=== PATIENT | male | born 1990 | race Caucasian/White ===

== ENCOUNTER 2020-03-23 13:58 | Inpatient (IN) | payer OTHER, SELFPAY ==
[2020-03-23] VITALS (11 sets, daily range): BP systolic 100–133; BP diastolic 59–78; PULSE 61–78; RESP 14–18; TEMP 36.6–37; O2SAT 97–100
[2020-03-23 14:51] LABS: Abs Immature Grans 0.03 k/cumm (0.0-0.09); Absolute Basophil Count 0.01 k/cumm (0.0-0.2); Absolute Lymphocyte Count 2.07 k/cumm (1.2-3.4); Basophils % 0.1; Eosinophils % 0.9; HCT 43.2 % (40.0-50.0); HGB 15.2 g/dL (13.5-17.5); Immature Grans % 0.2 %; Lymphocytes % 15.1; Mean Corp. HGB Concentration 35.2 g/dL (32.0-36.0); Mean Corpuscular Hemoglobin 31.3 pg (27.0-33.0); Mean Corpuscular Volume 88.9 fL (80-95); Mean Platelet Volume 11.5 fL (8.0-11.0); Neutrophils % 75.7; Platelet Count 186 x1000/uL (130-400); RBC 4.86 m/cumm (4.50-6.00); RBC Distribution Width 12.3 % (11.8-14.1); White Blood Cell Count 13.69 k/cumm (4.4-10.8)
[2020-03-23 14:51] LABS: Bilirubin Negative (Negative); Blood Negative (Negative); Clarity Clear (Clear); Glucose Negative (Negative); Ketones 15 mg/dL (Negative); Leukocyte Esterase Negative (Negative); Nitrite Negative (Negative); Specific Gravity 1.025 (1.005-1.025); Urobilinogen 0.2 EU/dL (Up TO 0.2); pH 6.5 (5-8)
[2020-03-23 14:53] LABS: Absolute Eosinophil Count 0.12 k/cumm (0.0-0.7); Absolute Neutrophil Count 10.36 k/cumm (1.2-6.7)
--- NOTE | 2020-03-23 15:00 | DI.CT_ITS ---
EXAM: CT ABDOMEN PELVIS W CLINICAL HISTORY: Right lower quadrant pain, elevated white count TECHNIQUE: Imaging Protocol: Axial computed tomography images with coronal and sagittal reformatted images were created and reviewed CONTRAST MATERIAL: Intravenous: Omnipaque 350 Contrast volume:100 mL Oral: yes / no COMPARISON: No exams were available for comparison FINDINGS: ABDOMEN: Lung Bases: Normal where visualized. Liver: Normal density. No measurable mass. Portal, Superior Mesenteric, and Splenic Veins: Unremarkable. Gallbladder and Biliary Tract: No radiodense calculus or dilation. Pancreas: Normal density, no abnormal calcifications or inflammatory process. Spleen: Normal. Adrenals: No masses seen. Kidneys: Normal size, contour and axis. No radiodense stones or obstructive uropathy. No masses seen. Abdominal Aorta: Abdominal portion non-dilated. Bowel: No obstruction or bowel wall thickening. The appendix is distended in the right lower quadrant measuring 1.9 cm in diameter. There is enhancement of the wall and periappendiceal inflammatory lashanda nges are present. There is some high density material seen with in loops of bowel and the appendix. This is felt to be ingested material.. No definite appendicoliths is present. Peritoneal Cavity: Small amount of free fluid in the pelvis. No abscess is present Lymph Nodes: Within normal limits. Bones: Unremarkable. Soft Tissues: Unremarkable. PELVIS: Bladder: Symmetric distention, no gross wall thickening. Reproductive Organs: Unremarkable as visualized. Lymph Nodes: Within normal limits. Bones: Within normal limits. IMPRESSION: Findings consistent with an acute appendicitis. No evidence of abscess or free air. Small amount of free fluid in the pelvis. The findings were discussed with the emergency department on the date of the examination. RADIATION DOSE DELIVERED: Total DLP DATA REPOSITORY: All CT scans at this facility are submitted to the National Radiology Data Registry (NRDR) Dose Index Registry (DIR) with the [employer] (ACR). RADIATION OPTIMIZATION: All CT scans at this facility use at least one of these dose optimization te chniques: automated exposure control; mA and/or kV adjustment per patient size (includes targeted exa ms where dose is matched to clinical indication); or iterative reconstruction.
[2020-03-23 15:03] LABS: ALT 39 U/L (16-63); AST 39 U/L (15-37); Albumin 4.3 g/dL (3.4-5.0); Alkaline Phosphatase 94 U/L (46-116); Anion Gap 7.8 mmol/L (3-11); BUN 19 mg/dL (7-18); Bilirubin, Total 1.7 mg/dL (0.2-1.0); CO2 28.2 mmol/L (21.0-32.0); CREATININE 1.25 mg/dL (0.70-1.30); Calcium 9.3 mg/dL (8.5-10.1); Chloride 98 mmol/L (98-107); Glucose 100 mg/dL (74-106); Lipase 64 U/L (73-393); Potassium 4.1 mmol/L (3.5-5.1); Sodium 134 mmol/L (136-145); Total Protein 8.2 g/dL (6.4-8.2)
--- NOTE | 2020-03-23 15:23 | W.ED.GENAD ---
Discharge Plan Disposition Patient Disposition: [facility] INPATIENT Condition: Stable Discharge Details Chief Complaint: Abd Prob Clinical Impression: Acute appendicitis Admit Date/Time: 03/23/20 20:39 Admit Provider: Anat Walton Attending Provider: Anat Walton Primary Care Provider: None,None ED Provider: Johanny Pagan Discharge Data Discharge Date/Time-TO BE ENTERED AT DEPARTURE: 03/23/20 18:03 Medical Decision Making <MITZI Silva - Last Filed: 03/23/20 15:33> 29-year-old gentleman presenting with progressive right lower quadrant discomfort. No other associated symptoms such as fever, nausea, back pain, dysuria, hematuria, diarrhea, constipation, testicular pain, groin discomfort. Denies trauma, travel, sick exposure, bad food exposure. Certainly the most likely diagnosis here is appendicitis however certainly could be atypical pyelonephritis, gastroenteritis, colitis, biliary colic, etc. Will obtain routine laboratory values and reassess Laboratory values reveal a white count of 13.69 hemoglobin 15.2 hematocrit 43.2 platelet count 186. Absolute neutrophils 10.36. Sodium 134, BUN 19, total bili 1.7, AST 39. Urinalysis reveals [address] abdomen and pelvis. He does have a slightly elevated bilirubin however is examination is far less consistent with biliary colic or acute cholecystitis Medical Records Medical records reviewed: Yes I reviewed the patient's medical records. Lab Data Lab results reviewed: Yes I reviewed the patient's lab results. Lab results narrative: Laboratory Tests Range/Units 03/23/20 03/23/20 03/23/20 14:20 14:20 14:45 WBC (4.4-10.8) k/cumm 13.69 H RBC (4.50-6.00) m/cumm 4.86 Hgb (13.5-17.5) g/dL 15.2 Hct (40.0-50.0) % 43.2 MCV (80-95) fL 88.9 MCH (27.0-33.0) pg 31.3 MCHC (32.0-36.0) g/dL 35.2 RDW (11.8-14.1) % 12.3 Plt Count (130-400) x1000/uL 186 MPV (8.0-11.0) fL 11.5 H Immature Gran % % 0.2 Neutrophils % 75.7 Lymphocytes % 15.1 Monocytes % 8.0 Eosinophils % 0.9 Basophils % 0.1 Absolute Neutrophils (1.2-6.7) k/cumm 10.36 H Absolute Lymphocytes (1.2-3.4) k/cumm 2.07 Absolute Monocytes (0.11-0.7) k/cumm 1.10 H Absolute Eosinophils (0.0-0.7) k/cumm 0.12 Absolute Basophils (0.0-0.2) k/cumm 0.01 Sodium (136-145) mmol/L 134 L Potassium (3.5-5.1) mmol/L 4.1 Chloride (98-107) mmol/L 98 Carbon Dioxide (21.0-32.0) mmol/L 28.2 Anion Gap (3-11) mmol/L 7.8 BUN (7-18) mg/dL 19 H Creatinine (0.70-1.30) mg/dL 1.25 Estimated GFR/1.73 m2 (mL/min/1.73m2) >= 60.00 Glucose (74-106) mg/dL 100 Calcium (8.5-10.1) mg/dL 9.3 Total Bilirubin (0.2-1.0) mg/dL 1.7 H AST (15-37) U/L 39 H ALT (16-63) U/L 39 Alkaline Phosphatase (46-116) U/L 94 Total Protein (6.4-8.2) g/dL 8.2 Albumin (3.4-5.0) g/dL 4.3 Lipase (73-393) U/L 64 Urine Color (Yellow) Yellow Urine Clarity (Clear) Clear Urine pH (5-8) 6.5 Ur Specific [place] (1.005-1.025) 1.025 Urine Protein (Negative) mg/dL Negative Urine Ketones (Negative) mg/dL 15 H Urine Blood (Negative) Negative Urine Nitrite (Negative) Negative Urine Bilirubin (Negative) Negative Urine Urobilinogen (Up TO 0.2) EU/dL 0.2 Ur Leukocyte Esterase (Negative) Negative Urine Glucose (Negative) mg/dL Negative <MITZI Hamilton - Last Filed: 03/23/20 22:21> Care transitioned to myself from Roney Rodríguez PA-C. Imaging had confirmed his suspicion for appendicitis, Roney discussed these results with the patient and had surgeon called. Patient requesting his daily dose of Suboxone. Typically receives 16mg film, will give two 8mg films for his typical dosing. Will give IV hydration, will discuss with surgeon regarding antibiotic selection. Consulted with Dr. Walton. She advised Zosyn for abx regimen prior to surgical intervention. Dr. Walton in the department taking patient to the OR for appendectomy. HPI <MITZI Silva - Last Filed: 03/23/20 15:33> General Mode of arrival: ambulatory. Date/Time Provider Initiated Documentation: 03/23/20 14:00. Limitations to Documentation: no limitations. Information obtained by: patient. HPI Narrative: 29-year-old gentleman who currently takes Suboxone, presents to the ER for right lower abdominal discomfort progressively worsening over the past week. He denies bad food exposure, sick contact, fever, back pain, nausea, vomiting, diarrhea, constipation, dysuria or hematuria. Denies any pain radiating to his testicles or penis. He reports that now just going over bumps in the car causes his pain to increase. It is mild-moderate at baseline. Pain is constant and crampy Related Data Home Medications Medication Instructions Recorded Confirmed ibuprofen 800 mg tablet 800 mg PO TID PRN #42 tab 06/04/19 03/23/20 buprenorphine-naloxone [Suboxone] 1 film BUCCAL Q24H 03/23/20 03/23/20 Previous Rx's Medication Instructions Recorded ibuprofen 800 mg tablet 800 mg PO TID PRN #42 tab 06/04/19 Allergies Allergy/AdvReac Type Severity Reaction Status Date / Time No Known Allergies Allergy Verified 06/03/19 15:27 General Stated Complaint: Abd Prob TONO: 3 Review of Systems <MITZI Silva - Last Filed: 03/23/20 15:33> Constitutional Constitutional: Denies fatigue, Denies fever(s) and Denies headache(s) ENT Ears, Nose, Mouth, and Throat: Denies headache(s) Cardiovascular Cardiovascular: Denies chest pain Respiratory Respiratory: Denies cough and Denies pain with cough Gastrointestinal Gastrointestinal: Reports abdominal pain, Denies diarrhea, Denies nausea and Denies vomiting Genitourinary Genitourinary: Denies dysuria and Denies testicular pain Musculoskeletal Musculoskeletal: Denies back pain Integumentary/Breasts Skin/Breast: Denies rash Neurologic Neurologic: Denies headache(s) Endocrine Endocrine: Denies fatigue PFSH <MITZI Silva - Last Filed: 03/23/20 15:33> Medical History (Updated 03/23/20 @ 22:21 by MITZI Hamilton) Acute appendicitis (Acute) Tetrahydrocannabinol (THC) use disorder, moderate, dependence (Acute) Social History Smoking/Tobacco Use Status: Never Alcohol Intake: never Details: doesn't drink Drug use: Current Sobriety Substance use type: marijuana Details: attends [employer] Seatbelt use: always Do you feel safe at home: Yes Do you feel safe in your relationship?: Yes Exam <MITZI Silva - Last Filed: 03/23/20 15:33> Const General: cooperative, healthy appearing, comfortable and no acute distress Orientation: alert, awake and oriented x3 HENMT Head: normal to inspection, normocephalic and atraumatic Mouth: moist mucous membranes Eyes Conjunctivae: conjunctivae normal Neck Neck: normal visual inspection, full ROM, trachea midline and supple Chest Chest: normal inspection of the chest Resp Effort & Inspection: normal respiratory effort and able to speak in complete sentences Auscultation: clear to auscultation bilaterally Cardio Rate: regular rate Rhythm: regular rhythm GI Inspection: normal to inspection Palpation: soft, not firm, no guarding, not rigid and tender at McBurney's point and with rebound tenderness Auscultation: normal bowel sounds Scrotum: scrotum normal Testes: normal and no testicular tenderness Back/Spine/Pelvis Back: no CVA tenderness and No back tenderness Skin General skin exam: no rashes or lesions noted Neuro General: patient alert, patient awake, patient oriented x3, moves all extremities and no focal motor deficits Motor: muscle tone normal throughout and strength 5/5 throughout Sensory Exam: no sensory deficits noted Psych Appearance: grossly normal Mental Status: mental status grossly normal Course <MITZI Silva - Last Filed: 03/23/20 15:33> Vital Signs Vital signs: Vital Signs Temperature 36.8 C 03/23/20 14:02 Pulse 75 03/23/20 14:02 Blood Pressure 133/67 03/23/20 14:02 Pulse Oximetry 98 03/23/20 14:02 Temperature 36.8 C 03/23/20 14:02 Temperature Source Temporal Artery Scan 03/23/20 14:02 Pulse 75 03/23/20 14:02 Respiratory Effort Non-Labored 03/23/20 14:04 Blood Pressure 133/67 03/23/20 14:02 Blood Pressure Position Sitting 03/23/20 14:02 Pulse Oximetry 98 03/23/20 14:02 Oxygen Delivery Method Room Air 03/23/20 14:02 Oxygen Flow Rate 0 03/23/20 14:02 Pain Level 7 03/23/20 14:02 Lab/Test Results Lab/Test Results: Laboratory Tests Range/Units 03/23/20 03/23/20 03/23/20 14:20 14:20 14:45 WBC (4.4-10.8) k/cumm 13.69 H RBC (4.50-6.00) m/cumm 4.86 Hgb (13.5-17.5) g/dL 15.2 Hct (40.0-50.0) % 43.2 MCV (80-95) fL 88.9 MCH (27.0-33.0) pg 31.3 MCHC (32.0-36.0) g/dL 35.2 RDW (11.8-14.1) % 12.3 Plt Count (130-400) x1000/uL 186 MPV (8.0-11.0) fL 11.5 H Immature Gran % % 0.2 Neutrophils % 75.7 Lymphocytes % 15.1 Monocytes % 8.0 Eosinophils % 0.9 Basophils % 0.1 Absolute Neutrophils (1.2-6.7) k/cumm 10.36 H Absolute Lymphocytes (1.2-3.4) k/cumm 2.07 Absolute Monocytes (0.11-0.7) k/cumm 1.10 H Absolute Eosinophils (0.0-0.7) k/cumm 0.12 Absolute Basophils (0.0-0.2) k/cumm 0.01 Sodium (136-145) mmol/L 134 L Potassium (3.5-5.1) mmol/L 4.1 Chloride (98-107) mmol/L 98 Carbon Dioxide (21.0-32.0) mmol/L 28.2 Anion Gap (3-11) mmol/L 7.8 BUN (7-18) mg/dL 19 H Creatinine (0.70-1.30) mg/dL 1.25 Estimated GFR/1.73 m2 (mL/min/1.73m2) >= 60.00 Glucose (74-106) mg/dL 100 Calcium (8.5-10.1) mg/dL 9.3 Total Bilirubin (0.2-1.0) mg/dL 1.7 H AST (15-37) U/L 39 H ALT (16-63) U/L 39 Alkaline Phosphatase (46-116) U/L 94 Total Protein (6.4-8.2) g/dL 8.2 Albumin (3.4-5.0) g/dL 4.3 Lipase (73-393) U/L 64 Urine Color (Yellow) Yellow Urine Clarity (Clear) Clear Urine pH (5-8) 6.5 Ur Specific [place] (1.005-1.025) 1.025 Urine Protein (Negative) mg/dL Negative Urine Ketones (Negative) mg/dL 15 H Urine Blood (Negative) Negative Urine Nitrite (Negative) Negative Urine Bilirubin (Negative) Negative Urine Urobilinogen (Up TO 0.2) EU/dL 0.2 Ur Leukocyte Esterase (Negative) Negative Urine Glucose (Negative) mg/dL Negative Sign Out <MITZI Silva - Last Filed: 03/23/20 15:33> Sign Out Data: Sign Out Comment: At time of signout patient had just returned from CT, awaiting CT results and disposition Last updated by Roney Rodríguez PA at 03/23/20 15:48
[2020-03-23] MEDS: Normal Saline - Diluent 50 ML VIAL IV (15:45)
[2020-03-23] MEDS: Omnipaque 350 MG/ML 100 ML BTL IJ (15:45)
[2020-03-23] MEDS: Normal Saline 1,000 ML 1000 ML IV (16:30)
[2020-03-23] MEDS: Buprenorphine/Naloxone 8 mg/2 mg FILM 2 EACH SL (16:31)
[2020-03-23] MEDS: PIPERACILLIN/TAZO 3.375 GM in Normal Saline 50 ML IVPB ×2 (16:57→23:28)
[2020-03-23] MEDS: Lactated Ringers 1,000 ML 150 ML IV ×3 (17:21→22:12)
--- NOTE | 2020-03-23 17:46 | HPE_ITS ---
Date of service: 03/23/20 Time of Service: 17:46 Assessment and Plan Assessment and plan (1) Acute appendicitis: Status: Acute Assessment and plan: Informed consent is obtained for the procedural (explained in simple layman's terms that the pt and/or family could understand) explaining risks vs benefits and alternatives to the procedure and consequences if we do not do the procedure. Risks include but are not limited to:bleeding,infections, pneumonia, blood clots/DVT/PE, anesthesia(aspiration, damage to teeth/airway/DE/CVA//prolonged mechanical ventilation/PTX/IV infections), damage to bowel, bladder,blood vessels. Leakage from anastomosis requiring colostomy/ Wound infections requiring further surgery. Hernias. Scarring and disfigurement. Subsequent bowel obstructions from scar tissue. Possible open procedure if minimally invasive procedure is being attempted. -abscess and drain. -stump appendicitis. -if his appendicitis is ruptured, we may only place a drain today and keep him in the hosp on IV abx. Than he would require appendectomy at a later date. (2) Tetrahydrocannabinol (THC) use disorder, moderate, dependence: Status: Acute History of Present Illness Consults Consult date: 03/23/20 Narrative: pt seen and exsmined. Pt says he has been having pain for about a week. Today the pain b/c severe and was painful w/ just breathing so he came in to have it checked out. no n/v. no diarrhea. +hungry. no prior hx of GI problems. denies trauma. no one else at home is ill. He denies any exposure to covid that he is aware of. no fever/chills/muscle aches. pain only in RLQ/suprpubic area. started in RLQ and has only been in RLQ/suprapubic area. Review of Systems All systems reviewed & are unremarkable except as noted in HPI and below PFSH Social History Smoking/Tobacco Use Status: Never Alcohol Intake: never Details: doesn't drink Drug use: Current Sobriety Substance use type: marijuana Details: attends [employer] Seatbelt use: always Do you feel safe at home: Yes Do you feel safe in your relationship?: Yes Meds Home Medications and Allergies Home Medications Medication Instructions Recorded Confirmed Type ibuprofen 800 mg tablet 800 mg PO TID PRN #42 tab 06/04/19 03/23/20 Rx buprenorphine-naloxone [Suboxone] 1 film BUCCAL Q24H 03/23/20 03/23/20 History Allergies Allergy/AdvReac Type Severity Reaction Status Date / Time No Known Allergies Allergy Verified 06/03/19 15:27 Exam Const General: cooperative, healthy appearing, comfortable, no acute distress, well developed and well groomed Nutritional Appearance: average body habitus and well nourished Orientation: alert, awake and oriented x3 HENMT Head: normal to inspection, normocephalic and atraumatic Ears: hearing grossly normal bilaterally and external ears normal General nose exam: external nose normal Face and sinus: normal facial exam and sinuses nontender Mouth: oral mucosae normal, lip normal, tongue normal and moist mucous membranes Teeth and gingiva: dentition normal Eyes General: appearance normal, both eyes and all related structures Conjunctivae: conjunctivae normal Sclera: sclerae normal Pupils: PERRL Neck Neck: normal visual inspection and full ROM Chest Chest: normal inspection of the chest Resp Effort & Inspection: normal respiratory effort, able to speak in complete sentences, no cough, no nasal flaring, not tachypneic and no use of accessory muscles Auscultation: clear to auscultation bilaterally, no rales, no rhonchi and no wheezes Cardio Jugular venous pressure: no JVD Rate: regular rate Rhythm: regular rhythm GI Inspection: normal to inspection, no edema and non-distended Palpation: soft, no masses, tender (no hernias. ) in the RLQ, suprapubicly, with rebound tenderness and Rovsing's sign positive; obturator sign negative and No ascites Auscultation: absent bowel sounds Other: no diffuse peritonitis. Skin General skin exam: no rashes or lesions noted Trauma: no lacerations or abrasions Other: min BS. mult tattoos. skin intact. Neuro General: patient alert, patient oriented x3, oriented, gait normal, moves all extremities, no focal motor deficits and CN's II-XI intact bilaterally Cognition: normal cognition Speech: speech normal Gait: normal gait Motor: muscle tone normal throughout Extrem General: normal to inspection, full ROM and no clubbing, cyanosis or edema Psych Appearance: grossly normal and well kempt Mental Status: mental status grossly normal Speech and Movement: speech and movement normal Affect: normal affect Results Labs Result diagrams: 03/23/20 14:20 03/23/20 14:20 Labs: Laboratory Results - last 24 hr 03/23/20 03/23/20 03/23/20 14:20 14:20 14:45 WBC 13.69 H RBC 4.86 Hgb 15.2 Hct 43.2 MCV 88.9 MCH 31.3 MCHC 35.2 RDW 12.3 Plt Count 186 MPV 11.5 H Immature Gran % 0.2 Neutrophils % 75.7 Lymphocytes % 15.1 Monocytes % 8.0 Eosinophils % 0.9 Basophils % 0.1 Absolute Neutrophils 10.36 H Absolute Lymphocytes 2.07 Absolute Monocytes 1.10 H Absolute Eosinophils 0.12 Absolute Basophils 0.01 Sodium 134 L Potassium 4.1 Chloride 98 Carbon Dioxide 28.2 Anion Gap 7.8 BUN 19 H Creatinine 1.25 Estimated GFR/1.73 m2 >= 60.00 Glucose 100 Calcium 9.3 Total Bilirubin 1.7 H AST 39 H ALT 39 Alkaline Phosphatase 94 Total Protein 8.2 Albumin 4.3 Lipase 64 Urine Color Yellow Urine Clarity Clear Urine pH 6.5 Ur Specific [place] 1.025 Urine Protein Negative Urine Ketones 15 H Urine Blood Negative Urine Nitrite Negative Urine Bilirubin Negative Urine Urobilinogen 0.2 Ur Leukocyte Esterase Negative Urine Glucose Negative Last Vital Signs Temp 37 C 03/23/20 15:51 Pulse 78 03/23/20 15:51 Resp 18 03/23/20 15:51 BP 127/72 03/23/20 15:51 Pulse Ox 98 03/23/20 15:51 COVID-19 Screening Traveled to [place] from one of the affected countries or regions?: NO Recent travel in the [place] within the last 14 days?: No Recent out of the country travel within the last 14 days?: No Exposure or possible exposure to illness during travel?: No Had IN PERSON contact w/suspected or confirmed C-19 person: No Have you had the following symptoms in the past few days?: No Symptoms noted since travel?: No Symptoms
[2020-03-23] MEDS: Bupivacaine 0.5% Pres-Free 30 ML VIAL (18:49)
--- NOTE | 2020-03-23 19:55 | APP_PTH ---
PATIENT: KAL NAIR LOC: [id number] AGE/SX: 29/M ROOM: 208 RE03/23/[address]: Anat Walton : 1990 BED: A DIS: 03/25/2020 SPEC #: [id number] RECD: 03/24/20 09:16 STATUS: ADRI REQ #: [id number] GUS: 03/23/20 19:[address]: Anat Walton DEPT: Surgical Specimen RECD BY: Kirby Manzo Tissues: 1 - APPENDIX NOT INCIDENTAL Procedures: GROSS AND MICRO LEVEL 3 Comments: [id number]
--- NOTE | 2020-03-23 20:31 | W.PM.OP ---
Date of service: 03/23/20 Time of Service: 20:32 Operative Note Operative Note DATE OF PROCEDURE: 03/23/20 PRE-OP DIAGNOSIS: acute appendicitis POST-OP DIAGNOSIS: same necrotic/gangrenous PROCEDURE: denisse appy and drain SURGEON: Ngoc Hood BATHING SUIT MAKER: Juhi Turner ANESTHESIA: GETA ESTIMATED BLOOD LOSS: 20 PATHOLOGY: other COMPLICATIONS: None Patient was transported to: PACU Patient's condition: stable Procedure Description: COMPLICATIONS: The patient tolerated the procedure well without complications. INDICATIONS: The patient has signs and symptoms compatible with acute appendicitis and is brought to the OR for laparoscopic appendectomy, possible open procedure. Informed consent is obtained for the procedural (explained in simple layman's terms that the pt and/or family could understand) explaining risks vs benefits and alternatives to the procedure and consequences if we do not do the procedure. Risks include but are not limited to:bleeding,infections, pneumonia, blood clots/DVT/PE, anesthesia(aspiration, damage to teeth/airway/VT/CVA//prolonged mechanical ventilation/PTX/IV infections), damage to bowel, bladder,blood vessels, ureters. Damage to solid organs requiring removal. Infertility. Leakage from anastomosis requiring colostomy. Wound infections requirng further surgery. Scarring and disfigurement. Subsequent bowel obstructions from scar tissue. Possible open procedure if minimaly invsive procedure is being attempted. Abscess and stump appendicitis as well as others. DESCRIPTION OF PROCEDURE: The patient was brought to the operating room suite and placed in supine position. Anesthesia was administered per the Department of Anesthesia. A Ibrahim catheter and OG tube are placed. The patient was prepped and draped in the usual sterile fashion using ChloraPrep scrub solution. Pause for the cause was done. 30 mL of 1% buffered was used for local anesthetization. A stab incision was made in the umbilicus and the Veress was inserted. Drop test was positive and insufflation was begun. When 15 mm of pressure was noted on the monitor, the Veress was removed, a #5 port inserted. Camera inserted through the port shows no damage to underlying structures. Bowel, liver and stomach that are visualized are normal in appearance. The appendix is severe inflammed adn necrotic. there is no abcess or fluid in the pelvis. The omentum is curled up over the appendix. this is taken down with a combination of blunt and sharp dissection. The appendix is also extremely retroperitoneal. White line of Toldt is opened sharply in order to visualize the appendix. The PEG also is curled around itself and the appendix is bluntly dissected up itself so we able to visualize the base as it comes into the cecum. A 12 mm port was then placed in the suprapubic position under direct visualization following creation of a local field block as well as a second 5 mm port in the LLQ. The appendix is elevated and a rent dissected into the mesentery. once I am able to dissect out/identify The base of the appendix, it is healthy and will hold mayi. A Endo-SCAR stapler is placed across the base of the appendix and fired and 2nd stapler placed across the mesentery and fired. The appendix is placed in a bag and brought out. There is no bleeding or enteric leakage from the staple lines. There is no abscess apparent. How because of severity of infection I did place a drain through 1 of the #5 port. Is a sewn in with 2-0 nylon. The abdomen was copiously irrigated with a liter of saline. All saline is evacuated. The scope and ports are removed. Pneumoperitoneum is evacuated. The fascia under the 12 mm port is closed with 0 Vicryl. There was no bleeding from the port sites as when they removed and the pneumoperitoneum evacuated. The wounds were copiously irrigated and closed in 2 layers with 4-0 Monocryl. Skin glue is applied. The patient tolerated the procedure without complication, transferred to the recovery room in stable condition. Family was apprised of patient condition. The patient can be discharged home later today. NGOC HOOD, DO
[2020-03-23] MEDS: Acetaminophen 325 MG TAB 650 MG PO (22:12)
--- NOTE | 2020-03-23 22:36 | PGE_ITS ---
Date of Service Date of service: 03/23/20 Time of Service: 21:40 Subjective Subjective Interval history since last seen: pt seen in recovery. Very groggy still. The Patient's condition has been reviewed with the RN. Vitals have all been stable. Pain is controlled. The patient has been had a hummel in during the procedure. MED-subxone dose is incorrect in computer. will address in am Antibiotics:zosyn DVT prophylaxis:SCD/walk GI prophylaxis: diet Constipation prophlaxis: MOM PHYSICAL EXAM GENERAL APPEARANCE: still very sleepy, healthy appearance, oriented, in no acute distress SKIN: No rashes. HYDRATION: Well hydrated HEAD, EYES, EARS, NECK, AND THROAT: Head is normocephalic, pupils equal, round, reactive to light and accommodation, ocular movement intact, sclera clear and no jaundice or redness. Dentition intact. No eye pain. No thrush NECK: no sore throat. LUNGS: normal respiration, clear to auscultation Normal chest wall movement. No chest wall pain. HEART: Regular rate and rhythm. NSR and no ST or T waves changes. EXTREMITY: No edema or cyanosis ABDOMEN: dressings are clean dry and intact. appropriate pain at surgical site. + bowel sounds NEURO: no focal neuro deficits. The patient current medical condition and all orders reviewed with nursing. Patient is stable and doing well postOp and continue routine medical care. pt will be started on abx b/c of the severity of Dx. labs in am ambulate pulm toilet pain control pt is on subxone adn the dose in computer is wrong- will address in am See orders. NGOC HOOD D.O. Objective Objective Clinical Data: Abnormal lab results 03/23/20 03/23/20 03/23/20 Range/Units 14:20 14:20 14:45 WBC 13.69 H (4.4-10.8) k/cumm MPV 11.5 H (8.0-11.0) fL Absolute Neutrophils 10.36 H (1.2-6.7) k/cumm Absolute Monocytes 1.10 H (0.11-0.7) k/cumm Sodium 134 L (136-145) mmol/L BUN 19 H (7-18) mg/dL Total Bilirubin 1.7 H (0.2-1.0) mg/dL AST 39 H (15-37) U/L Urine Ketones 15 H (Negative) mg/dL Vital Signs Temperature 36.9 C 03/23/20 21:49 Temperature Source Temporal Artery Scan 03/23/20 15:51 Pulse 61 03/23/20 21:49 Pulse Rhythm Regular 03/23/20 21:49 Respiratory Rate 17 03/23/20 21:49 Respiratory Effort Non-Labored 03/23/20 21:49 Respiratory Depth Normal 03/23/20 21:49 Respiratory Pattern Normal 03/23/20 21:49 Blood Pressure 116/70 03/23/20 21:49 Blood Pressure Position Sitting 03/23/20 14:02 Pulse Oximetry 100 03/23/20 21:49 Oxygen Delivery Method Room Air 03/23/20 21:49 Oxygen Flow Rate 0 03/23/20 21:49 Pain Level 0 03/23/20 21:49 Intake & Output 03/22/20 03/23/20 03/23/20 23:59 11:59 23:59 Intake Total 2199 / 2199 Output Total 150 / 150 Balance 2049 Weight 89.8 kg Intake: IV 2199 / 2199 Output: Urine 150 / 150 Other: Urine Color Yellow Urine Appearance Clear Emesis Description None Laboratory Results WBC 13.69 k/cumm (4.4-10.8) H 03/23/20 14:20 RBC 4.86 m/cumm (4.50-6.00) 03/23/20 14:20 Hgb 15.2 g/dL (13.5-17.5) 03/23/20 14:20 Hct 43.2 % (40.0-50.0) 03/23/20 14:20 MCV 88.9 fL (80-95) 03/23/20 14:20 MCH 31.3 pg (27.0-33.0) 03/23/20 14:20 MCHC 35.2 g/dL (32.0-36.0) 03/23/20 14:20 RDW 12.3 % (11.8-14.1) 03/23/20 14:20 Plt Count 186 x1000/uL (130-400) 03/23/20 14:20 MPV 11.5 fL (8.0-11.0) H 03/23/20 14:20 Immature Gran % 0.2 % 03/23/20 14:20 Neutrophils % 75.7 03/23/20 14:20 Lymphocytes % 15.1 03/23/20 14:20 Monocytes % 8.0 03/23/20 14:20 Eosinophils % 0.9 03/23/20 14:20 Basophils % 0.1 03/23/20 14:20 Absolute Neutrophils 10.36 k/cumm (1.2-6.7) H 03/23/20 14:20 Absolute Lymphocytes 2.07 k/cumm (1.2-3.4) 03/23/20 14:20 Absolute Monocytes 1.10 k/cumm (0.11-0.7) H 03/23/20 14:20 Absolute Eosinophils 0.12 k/cumm (0.0-0.7) 03/23/20 14:20 Absolute Basophils 0.01 k/cumm (0.0-0.2) 03/23/20 14:20 Sodium 134 mmol/L (136-145) L 03/23/20 14:20 Potassium 4.1 mmol/L (3.5-5.1) 03/23/20 14:20 Chloride 98 mmol/L (98-107) 03/23/20 14:20 Carbon Dioxide 28.2 mmol/L (21.0-32.0) 03/23/20 14:20 Anion Gap 7.8 mmol/L (3-11) 03/23/20 14:20 BUN 19 mg/dL (7-18) H 03/23/20 14:20 Creatinine 1.25 mg/dL (0.70-1.30) 03/23/20 14:20 Estimated GFR/1.73 m2 >= 60.00 (mL/min/1.73m2) 03/23/20 14:20 Glucose 100 mg/dL (74-106) 03/23/20 14:20 Calcium 9.3 mg/dL (8.5-10.1) 03/23/20 14:20 Total Bilirubin 1.7 mg/dL (0.2-1.0) H 03/23/20 14:20 AST 39 U/L (15-37) H 03/23/20 14:20 ALT 39 U/L (16-63) 03/23/20 14:20 Alkaline Phosphatase 94 U/L (46-116) 03/23/20 14:20 Total Protein 8.2 g/dL (6.4-8.2) 03/23/20 14:20 Albumin 4.3 g/dL (3.4-5.0) 03/23/20 14:20 Lipase 64 U/L (73-393) 03/23/20 14:20 Urine Color Yellow (Yellow) 03/23/20 14:45 Urine Clarity Clear (Clear) 03/23/20 14:45 Urine pH 6.5 (5-8) 03/23/20 14:45 Ur Specific [place] 1.025 (1.005-1.025) 03/23/20 14:45 Urine Protein Negative mg/dL (Negative) 03/23/20 14:45 Urine Ketones 15 mg/dL (Negative) H 03/23/20 14:45 Urine Blood Negative (Negative) 03/23/20 14:45 Urine Nitrite Negative (Negative) 03/23/20 14:45 Urine Bilirubin Negative (Negative) 03/23/20 14:45 Urine Urobilinogen 0.2 EU/dL (Up TO 0.2) 03/23/20 14:45 Ur Leukocyte Esterase Negative (Negative) 03/23/20 14:45 Urine Glucose Negative mg/dL (Negative) 03/23/20 14:45
[2020-03-24] MEDS: Normal Saline 50 ML ×2 (02:37→02:38)
[2020-03-24] MEDS: Acetaminophen 325 MG TAB 650 MG PO ×6 (02:59→21:23)
[2020-03-24] MEDS: PIPERACILLIN/TAZO 3.375 GM in Normal Saline 50 ML IVPB ×4 (03:00→21:18)
[2020-03-24] MEDS: Ketorolac 30 MG/ML VIAL IVP ×4 (03:00→21:18)
[2020-03-24] MEDS: Normal Saline Flush 10 ML SYR IVP (03:01)
[2020-03-24] MEDS: Lactated Ringers 1,000 ML 150 ML IV ×2 (04:43→11:24)
[2020-03-24 07:03] LABS: ALT 29 U/L (16-63); AST 26 U/L (15-37); Albumin 3.1 g/dL (3.4-5.0); Alkaline Phosphatase 76 U/L (46-116); Anion Gap 5.9 mmol/L (3-11); BUN 19 mg/dL (7-18); CO2 27.1 mmol/L (21.0-32.0); CREATININE 1.38 mg/dL (0.70-1.30); Calcium 7.7 mg/dL (8.5-10.1); Chloride 101 mmol/L (98-107); Glucose 128 mg/dL (74-106); Potassium 4.2 mmol/L (3.5-5.1); Sodium 134 mmol/L (136-145); Total Protein 6.5 g/dL (6.4-8.2)
[2020-03-24 07:30] VITALS: BP 117/57; PULSE 74; RESP 16; TEMP 36.7; O2SAT 98
[2020-03-24] MEDS: Lactobacillus Acidophilus CAP 1 CAP PO ×3 (09:05→21:18)
--- NOTE | 2020-03-24 13:22 | PGE_ITS ---
Date of Service Date of service: 03/24/20 Time of Service: 13:22 Assessment and Plan Assessment and plan (1) Tetrahydrocannabinol (THC) use disorder, moderate, dependence: Status: Acute (2) Acute appendicitis: Status: Acute (3) Acute gangrenous appendicitis with localized peritonitis, without perforation: Status: Acute Assessment and plan: -walk pulm toilet cont abx x 24 hrs local wound care subxone therapy continued -plan d/c in am will remove DEMETRIUS prior to removal. (4) Elevated bilirubin: Status: Acute Assessment and plan: check direct bilirubin Subjective Subjective Interval history since last seen: Pt is doing well. no headaches. No CP or SOB. no productive cough. no dysuria. no leg pain or swelling. pain is well controlled. no drainage from DEMETRIUS passing gas. Exam Const General: cooperative, healthy appearing, comfortable, no acute distress, well developed and well groomed Nutritional Appearance: average body habitus and well nourished Orientation: alert, awake and oriented x3 HENMT Head: normal to inspection, normocephalic and atraumatic Ears: hearing grossly normal bilaterally and external ears normal General nose exam: external nose normal Face and sinus: normal facial exam and sinuses nontender Mouth: oral mucosae normal, lip normal, tongue normal and moist mucous membranes Teeth and gingiva: dentition normal Eyes General: appearance normal, both eyes and all related structures Conjunctivae: conjunctivae normal Sclera: sclerae normal Pupils: PERRL Neck Neck: normal visual inspection and full ROM Chest Chest: normal inspection of the chest Resp Effort & Inspection: normal respiratory effort, able to speak in complete sentences, no cough, no nasal flaring, not tachypneic and no use of accessory muscles Auscultation: clear to auscultation bilaterally, no rales, no rhonchi and no wheezes Cardio Jugular venous pressure: no JVD Rate: regular rate Rhythm: regular rhythm GI Inspection: normal to inspection, no edema and non-distended Palpation: soft, no masses, nontender and No ascites Auscultation: normal bowel sounds Other: +BS. incisions c/d/i. mild bruising around suprapubic port site no drainage from DEMETRIUS Skin General skin exam: no rashes or lesions noted Trauma: no lacerations or abrasions Neuro General: patient alert, patient oriented x3, oriented, gait normal, moves all extremities, no focal motor deficits and CN's II-XI intact bilaterally Cognition: normal cognition Speech: speech normal Gait: normal gait Motor: muscle tone normal throughout Extrem General: normal to inspection, full ROM and no clubbing, cyanosis or edema Psych Appearance: grossly normal and well kempt Mental Status: mental status grossly normal Speech and Movement: speech and movement normal Affect: normal affect Objective Objective Clinical Data: Abnormal lab results 03/23/20 03/23/20 03/23/20 Range/Units 14:20 14:20 14:45 WBC 13.69 H (4.4-10.8) k/cumm MPV 11.5 H (8.0-11.0) fL Absolute Neutrophils 10.36 H (1.2-6.7) k/cumm Absolute Monocytes 1.10 H (0.11-0.7) k/cumm Sodium 134 L (136-145) mmol/L BUN 19 H (7-18) mg/dL Creatinine (0.70-1.30) mg/dL Glucose (74-106) mg/dL Calcium (8.5-10.1) mg/dL Total Bilirubin 1.7 H (0.2-1.0) mg/dL AST 39 H (15-37) U/L Albumin (3.4-5.0) g/dL Urine Ketones 15 H (Negative) mg/dL 03/24/20 Range/Units 06:20 WBC (4.4-10.8) k/cumm MPV (8.0-11.0) fL Absolute Neutrophils (1.2-6.7) k/cumm Absolute Monocytes (0.11-0.7) k/cumm Sodium 134 L (136-145) mmol/L BUN 19 H (7-18) mg/dL Creatinine 1.38 H (0.70-1.30) mg/dL Glucose 128 H (74-106) mg/dL Calcium 7.7 L (8.5-10.1) mg/dL Total Bilirubin 2.0 H (0.2-1.0) mg/dL AST (15-37) U/L Albumin 3.1 L (3.4-5.0) g/dL Urine Ketones (Negative) mg/dL Vital Signs Temperature 36.7 C 03/24/20 07:30 Temperature Source Tympanic 03/24/20 07:30 Pulse 74 03/24/20 07:30 Pulse Rhythm Regular 03/24/20 09:10 Respiratory Rate 16 03/24/20 07:30 Respiratory Effort Non-Labored 03/24/20 09:10 Respiratory Depth Normal 03/24/20 09:10 Respiratory Pattern Normal 03/24/20 09:10 Blood Pressure 117/57 L 03/24/20 07:30 Blood Pressure Position Sitting 03/23/20 14:02 Pulse Oximetry 98 03/24/20 07:30 Oxygen Delivery Method Room Air 03/24/20 07:30 Oxygen Flow Rate 0 03/24/20 07:30 Pain Level 3 03/24/20 10:36 Intake & Output 03/23/20 03/24/20 03/24/20 23:59 11:59 23:59 Intake Total 2250 / 2250 2407.5 / 2407.5 Output Total 150 / 150 0 / 0 Balance 2100 / 2100 2407.5 / 2407.5 Weight 89.8 kg Intake: IV 2250 / 2250 2077.5 / 2077.5 Oral 330 / 330 Output: Drainage 0 / 0 Left Lower Abdomen 0 / 0 Urine 150 / 150 Other: Urine Color Yellow Urine Appearance Clear Clear Urine Odor Normal Comment Mod amnt in toilet Emesis Description None Voiding Methods Toilet Laboratory Results WBC 13.69 k/cumm (4.4-10.8) H 03/23/20 14:20 RBC 4.86 m/cumm (4.50-6.00) 03/23/20 14:20 Hgb 15.2 g/dL (13.5-17.5) 03/23/20 14:20 Hct 43.2 % (40.0-50.0) 03/23/20 14:20 MCV 88.9 fL (80-95) 03/23/20 14:20 MCH 31.3 pg (27.0-33.0) 03/23/20 14:20 MCHC 35.2 g/dL (32.0-36.0) 03/23/20 14:20 RDW 12.3 % (11.8-14.1) 03/23/20 14:20 Plt Count 186 x1000/uL (130-400) 04/29/20 14:20 MPV 11.5 fL (8.0-11.0) H 03/23/20 14:20 Immature Gran % 0.2 % 03/23/20 14:20 Neutrophils % 75.7 03/23/20 14:20 Lymphocytes % 15.1 03/23/20 14:20 Monocytes % 8.0 03/23/20 14:20 Eosinophils % 0.9 03/23/20 14: Basophils % 0.1 03/23/20 14:20 Absolute Neutrophils 10.36 k/cumm (1.2-6.7) H 03/23/20 14:20 Absolute Lymphocytes 2.07 k/cumm (1.2-3.4) 03/23/20 14: Absolute Monocytes 1.10 k/cumm (0.11-0.7) H 03/23/20 14:20 Absolute Eosinophils 0.12 k/cumm (0.0-0.7) 03/23/20 14: Absolute Basophils 0.01 k/cumm (0.0-0.2) 03/23/20 14:20 Sodium 134 mmol/L (136-145) L 03/24/20 06:20 Potassium 4.2 mmol/L (3.5-5.1) 03/24/20 06:20 Chloride 101 mmol/L (98-107) 03/24/20 06:20 Carbon Dioxide 27.1 mmol/L (21.0-32.0) 03/24/20 06:20 Anion Gap 5.9 mmol/L (3-11) 03/24/20 06:20 BUN 19 mg/dL (7-18) H 03/24/20 06:20 Creatinine 1.38 mg/dL (0.70-1.30) H 03/24/20 06:20 Estimated GFR/1.73 m2 >= 60.00 (mL/min/1.73m2) 03/24/20 06:20 Glucose 128 mg/dL (74-106) H 03/24/20 06:20 Calcium 7.7 mg/dL (8.5-10.1) L 03/24/20 06:20 Total Bilirubin 2.0 mg/dL (0.2-1.0) H 03/24/20 06:20 AST 26 U/L (15-37) 03/24/20 06:20 ALT 29 U/L (16-63) 03/24/20 06:20 Alkaline Phosphatase 76 U/L (46-116) 03/24/20 06:20 Total Protein 6.5 g/dL (6.4-8.2) 03/24/20 06:20 Albumin 3.1 g/dL (3.4-5.0) L 03/24/20 06:20 Lipase 64 U/L (73-393) 03/23/20 14:20 Urine Color Yellow (Yellow) 03/23/20 14:45 Urine Clarity Clear (Clear) 03/23/20 14:45 Urine pH 6.5 (5-8) 03/23/20 14:45 Ur Specific [place] 1.025 (1.005-1.025) 03/23/20 14:45 Urine Protein Negative mg/dL (Negative) 03/23/20 14:45 Urine Ketones 15 mg/dL (Negative) H 03/23/20 14:45 Urine Blood Negative (Negative) 03/23/20 14:45 Urine Nitrite Negative (Negative) 03/23/20 14:45 Urine Bilirubin Negative (Negative) 03/23/20 14:45 Urine Urobilinogen 0.2 EU/dL (Up TO 0.2) 03/23/20 14:45 Ur Leukocyte Esterase Negative (Negative) 03/23/20 14:45 Urine Glucose Negative mg/dL (Negative) 03/23/20 14:45
[2020-03-24] MEDS: Buprenorphine/Naloxone 8 mg/2 mg FILM 2 EACH SL (15:48)
[2020-03-24 16:00] VITALS: BP 118/56; PULSE 69; RESP 18; TEMP 36.8; O2SAT 100
--- NOTE | 2020-03-24 17:32 | INITIAL_ITS ---
- If Service Date Differs Date of service: 03/24/20 Time of Service: 18:38 Care Management Initial Assess REASON FOR HOSPITALIZATION:: Acute Appendicitis PAST MEDICAL HISTORY/PAST SURGICAL HISTORY:: Acute gangrenous appendicitis with localized peritonitis, without perforation, elevated bilirubin, THC use disorder. PREVIOUS FUNCTIONAL STATUS/SOCIAL/FAMILY SUPPORTS:: Dion resides in [place], [place]. 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 He is independent with ADLs in the community. ADVANCE DIRECTIVES:: None on file at [facility]. Has patient been provided with information about the portal?: Yes Did the patient sign up for the portal?: No CODE STATUS:: Full Code INSURANCE COVERAGE / FINANCIAL ISSUES:: [employer] CURRENT HOME/COMMUNITY SERVICES/EQUIPMENT:: No current services or equipment. PRIMARY CARE PHYSICIAN:: No current PCP. POTENTIAL DISCHARGE NEEDS:: PCP attachment, ? Last dose letter? PATIENT/FAMILY EDUCATION NEEDS:: Review discharge instructions, discuss Ask Me Three. ANTICIPATED BARRIERS TO DISCHARGE:: None identified. TRANSPORTATION:: Via private vehicle with his significant other. PLAN:: Dion will return home when ready per MD. CM will discuss PCP attachment with Dion and provide referral as needed. CM will also inquire as to maintenance program schedule and requirements possible need for last dose letter. Dion will transport via private vehicle with his significant other.
[2020-03-24 18:12] VITALS: BP 84/46; PULSE 53; RESP 19; TEMP 36.9; O2SAT 99
[2020-03-24 18:48] LABS: Bilirubin, Direct 0.34 mg/dL (0.00-0.20)
[2020-03-24 19:27] VITALS: BP 116/60
[2020-03-24 22:24] LABS: COVID-19 RT-PCR UVMMC Result Negative (Negative)
[2020-03-25] MEDS: Acetaminophen 325 MG TAB 650 MG PO ×3 (03:21→09:56)
[2020-03-25] MEDS: PIPERACILLIN/TAZO 3.375 GM in Normal Saline 50 ML IVPB ×2 (03:22→09:56)
[2020-03-25] MEDS: Ketorolac 30 MG/ML VIAL IVP ×2 (03:22→08:44)
[2020-03-25 04:43] VITALS: BP 99/52; PULSE 62; RESP 15; TEMP 36.5; O2SAT 98
[2020-03-25 06:54] LABS: Absolute Basophil Count 0.02 k/cumm (0.0-0.2); Absolute Eosinophil Count 0.19 k/cumm (0.0-0.7); Absolute Lymphocyte Count 2.71 k/cumm (1.2-3.4); Absolute Monocyte Count 0.56 k/cumm (0.11-0.7); Absolute Neutrophil Count 3.02 k/cumm (1.2-6.7); Basophils % 0.3; Eosinophils % 2.9; HCT 35.2 % (40.0-50.0); HGB 11.9 g/dL (13.5-17.5); Lymphocytes % 41.7; Mean Corp. HGB Concentration 33.8 g/dL (32.0-36.0); Mean Corpuscular Hemoglobin 31.3 pg (27.0-33.0); Mean Corpuscular Volume 92.6 fL (80-95); Mean Platelet Volume 11.7 fL (8.0-11.0); Monocytes % 8.6; Neutrophils % 46.5; Platelet Count 134 x1000/uL (130-400); RBC Distribution Width 12.5 % (11.8-14.1)
[2020-03-25 07:26] VITALS: BP 104/55; PULSE 58; RESP 18; TEMP 37; O2SAT 97
[2020-03-25] MEDS: Lactobacillus Acidophilus CAP 1 CAP PO (08:44)
[2020-03-25] MEDS: Normal Saline Flush 10 ML SYR IVP (08:45)
--- NOTE | 2020-03-25 09:31 | W.PM.PROGNOT ---
Date of Service Date of service: 03/25/20 Time of Service: 09:32 Assessment and Plan Assessment and plan (1) Acute gangrenous appendicitis with localized peritonitis, without perforation: Status: Acute Assessment and plan: pod#2 drain- serous only and removed. don't think pt requires further abx will see pt next Saturday d/w pt wound care/activity/return to work and warning sings- see orders note for work given use ibuprofen and ice for pain. cont on suboxone therapy. Pt may need a note for his pain management group- he did receive narcotics during surgery. If there are any further questions or concerns- contact the office or ED if after hours. All questions and concerns addressed. Patient verbalized understanding of his instructions. Patient discharged in stable and satisfactory condition Subjective Subjective Interval history since last seen: Pt is doing well. no headaches. No CP or SOB. no productive cough. no dysuria. no leg pain or swelling. He is having minimal serous drainage from the drain. He did have a BM. no thrush. no temps and WBC is down to nl. Exam Narrative Exam Narrative: HEENT: no janudice. no eye pain/drainage/redness/swelling. no sore throat cardio- NSR no chest pain, BP stable. pulm: no sob or productive cough. no hemoptysis insicion- clean/dry. dressing intact no excessive bleeding or drainage drain is seorus only and is removed today. skin glue applied to the incision to close it. Objective Objective Clinical Data: Abnormal lab results 03/24/20 03/25/20 Range/Units 06:20 06:30 RBC 3.80 L (4.50-6.00) m/cumm Hgb 11.9 L D (13.5-17.5) g/dL Hct 35.2 L (40.0-50.0) % MPV 11.7 H (8.0-11.0) fL Conjugated Bilirubin 0.34 H (0.00-0.20) mg/dL Vital Signs Temperature 37.0 C 03/25/20 07:26 Temperature Source Temporal Artery Scan 03/25/20 07:26 Pulse 58 L 03/25/20 07:26 Pulse Rhythm Regular 03/25/20 01:39 Respiratory Rate 18 03/25/20 07:26 Respiratory Effort 03/25/20 01:39 Respiratory Depth Normal 03/25/20 01:39 Respiratory Pattern Normal 03/25/20 01:39 Blood Pressure 104/55 L 03/25/20 07:26 Blood Pressure Position Sitting 03/23/20 14:02 Pulse Oximetry 97 03/25/20 07:26 Oxygen Delivery Method Room Air 03/25/20 07:26 Oxygen Flow Rate 0 03/25/20 07:26 Pain Level 4 03/25/20 08:44 Intake & Output 03/24/20 03/24/20 03/25/20 11:59 23:59 11:59 Intake Total 2407.5 / 3772.5 1365 / 3772.5 50 / 50 Output Total / 45 Balance 2407.5 / 3742.5 1335 / 3742.5 5 Intake: IV 2077.5 / 2662.5 585 / 2662.5 50 / 50 Oral 330 / 1110 780 / 1110 Output: Drainage 45 Left Lower Abdomen Other: Urine Appearance Clear Clear Clear Comment pt voiding independently. Laboratory Results WBC 6.50 k/cumm (4.4-10.8) 03/25/20 06:30 RBC 3.80 m/cumm (4.50-6.00) L 03/25/20 06:30 Hgb 11.9 g/dL (13.5-17.5) L D 03/25/20 06:30 Hct 35.2 % (40.0-50.0) L 03/25/20 06:30 MCV 92.6 fL (80-95) 03/25/20 06:30 MCH 31.3 pg (27.0-33.0) 03/25/20 06:30 MCHC 33.8 g/dL (32.0-36.0) 03/25/20 06:30 RDW 12.5 % (11.8-14.1) 03/25/20 06:30 Plt Count 134 x1000/uL (130-400) 03/25/20 06:30 MPV 11.7 fL (8.0-11.0) H 03/25/20 06:30 Immature Gran % 0.0 % 03/25/20 06:30 Neutrophils % 46.5 03/25/20 06:30 Lymphocytes % 41.7 03/25/20 06:30 Monocytes % 8.6 03/25/20 06:30 Eosinophils % 2.9 03/25/20 06:30 Basophils % 0.3 03/25/20 06:30 Absolute Neutrophils 3.02 k/cumm (1.2-6.7) 03/25/20 06:30 Absolute Lymphocytes 2.71 k/cumm (1.2-3.4) 03/25/20 06:30 Absolute Monocytes 0.56 k/cumm (0.11-0.7) 03/25/20 06:30 Absolute Eosinophils 0.19 k/cumm (0.0-0.7) 03/25/20 06:30 Absolute Basophils 0.02 k/cumm (0.0-0.2) 03/25/20 06:30 Sodium 134 mmol/L (136-145) L 03/24/20 06:20 Potassium 4.2 mmol/L (3.5-5.1) 03/24/20 06:20 Chloride 101 mmol/L (98-107) 03/24/20 06:20 Carbon Dioxide 27.1 mmol/L (21.0-32.0) 03/24/20 06:20 Anion Gap 5.9 mmol/L (3-11) 03/24/20 06:20 BUN 19 mg/dL (7-18) H 03/24/20 06:20 Creatinine 1.38 mg/dL (0.70-1.30) H 03/24/20 06:20 Estimated GFR/1.73 m2 >= 60.00 (mL/min/1.73m2) 03/24/20 06:20 Glucose 128 mg/dL (74-106) H 03/24/20 06:20 Calcium 7.7 mg/dL (8.5-10.1) L 03/24/20 06:20 Total Bilirubin 2.0 mg/dL (0.2-1.0) H 03/24/20 06:20 Conjugated Bilirubin 0.34 mg/dL (0.00-0.20) H 03/24/20 06:20 AST 26 U/L (15-37) 03/24/20 06:20 ALT 29 U/L (16-63) 03/24/20 06:20 Alkaline Phosphatase 76 U/L (46-116) 03/24/20 06:20 Total Protein 6.5 g/dL (6.4-8.2) 03/24/20 06:20 Albumin 3.1 g/dL (3.4-5.0) L 03/24/20 06:20 Lipase 64 U/L (73-393) 03/23/20 14:20 Urine Color Yellow (Yellow) 03/23/20 14:45 Urine Clarity Clear (Clear) 03/23/20 14:45 Urine pH 6.5 (5-8) 03/23/20 14:45 Ur Specific [place] 1.025 (1.005-1.025) 03/23/20 14:45 Urine Protein Negative mg/dL (Negative) 03/23/20 14:45 Urine Ketones 15 mg/dL (Negative) H 03/23/20 14:45 Urine Blood Negative (Negative) 03/23/20 14:45 Urine Nitrite Negative (Negative) 03/23/20 14:45 Urine Bilirubin Negative (Negative) 03/23/20 14:45 Urine Urobilinogen 0.2 EU/dL (Up TO 0.2) 03/23/20 14:45 Ur Leukocyte Esterase Negative (Negative) 03/23/20 14:45 Urine Glucose Negative mg/dL (Negative) 03/23/20 14:45 COVID-19 PCR Negative (Negative) 03/23/20 18:42 Nasopharyn COVID-19 PCR Not Applicable 03/23/20 18:42 Ref Test Perform Site [facility] hospital lab 03/23/20 18:42
--- NOTE | 2020-03-25 09:33 | W.PM.DS.N ---
Date of service: 03/25/20 Time of Service: 09:34 DS: Diagnosis Discharge Diagnosis (1) Tetrahydrocannabinol (THC) use disorder, moderate, dependence: Status: Acute (2) Acute appendicitis: Status: Acute (3) Acute gangrenous appendicitis with localized peritonitis, without perforation: Status: Acute (4) Elevated bilirubin: Status: Acute Discharge Plan Disposition Patient Disposition: HOME Condition: Stable Discharge Details Chief Complaint: Abd Prob Clinical Impression: Acute appendicitis Reason For Visit: GANGRENOUS APPENDICITIS Admit Date/Time: 03/23/20 20:39 Admit Provider: Anat Walton Attending Provider: Anat Walton Primary Care Provider: Tommie,Tommie ED Provider: Johanny Pagan Hospital Course Hospital Course: pt was admitted through the ED on 03/23 w/ acute appendicitis after being sick for 1 wks time. He was found to have a necrotic appendix- but surprisingly- no abscess. This was removed laprascopically. He did well with surgery and has had no complications. He was kept inpt on IV abx for the last 24hrs. He has not had a fever or elevated WBC adn is being d/c'ed home today w/ routine postOp cares and no abx. He will use ice and ibuprofen for pain and f/u in clinic next saturday and off of work for 1 week. Home Meds and New Rx's Prescriptions: New ibuprofen 800 mg tablet 800 mg PO Q8H PRN (Reason: pain) Qty: 90 RF: 0 Continued ibuprofen 800 mg tablet 800 mg PO TID PRN (Reason: pain) Qty: 42 RF: 0 buprenorphine-naloxone [Suboxone] 12-3 mg Film 1 film BUCCAL Q24H RF: 0 Discharge Instructions Additional Instructions: Keep an ice bag on the incision. 20 minutes on and 20 minutes off. Ice keeps the swelling down and swelling causes pain. Make sure you wrap the ice pack in a towel and don't apply directly to the skin. -No driving until Saturday -Do Not remove the skin glue (purple stuff) that cover the incision. -Follow-up with Dr. Walton in 1 week. -regular diet -no straining to move bowels -pain meds are very constipating: if you do not move your bowels daily take a dose of OTC milk of magnesia -It is ok to shower. No bathe, soaking, swimming or hot tubs -Keep wound clean and dry. Wash incision with soap and water daily. Pat dry, don't rub. -You may find that your appetite is smaller. Eat 3-6 small meals throughout the day. It is important to drink lots of water after surgery, 6-10 glasses a day. -If you were given an incentive spirometry (breathing unstacker?), continue to do this 10x/hour while awake. -We do want you up walking, at least 5-6 times per day. This is very important to prevent pneumonia and blood clots. You can climb stairs, take them slowly. -No lifting over 5 pounds. This is very important to avoid developing a hernia in your incision. -You may find that you are very tired after surgery- this is normal. -please do not smoke for a minimum of 72 hours after surgery. -F/u in clinic on March 30- Saturday. We will decide on return to work at that time. Activity:: see above Equipment/Supplies:: No Equipment Needed Diet:: As Tolerated Discharge Orders Discharge Orders: Discharge Order (Routine); Ordered 03/25/20 Ordered By: Anat Walton DS: Summary Status at Discharge Functional status at discharge: independent ambulation Overall status at discharge: patient is back to baseline Mental Status: mental status grossly normal Speech and Movement: speech and movement normal Mood: congruent mood Affect: normal affect Exam Psych Mental Status: mental status grossly normal Speech and Movement: speech and movement normal Mood: congruent mood Affect: normal affect DS: Data Vitals/I&O Vitals and I&O: Vital Signs Temperature 37.0 C 03/25/20 07:26 Temperature Source Temporal Artery Scan 03/25/20 07:26 Pulse 58 L 03/25/20 07:26 Pulse Rhythm Regular 03/25/20 01:39 Respiratory Rate 18 03/25/20 07:26 Respiratory Effort 03/25/20 01:39 Respiratory Depth Normal 03/25/20 01:39 Respiratory Pattern Normal 03/25/20 01:39 Blood Pressure 104/55 L 03/25/20 07:26 Blood Pressure Position Sitting 03/23/20 14:02 Pulse Oximetry 97 03/25/20 07:26 Oxygen Delivery Method Room Air 03/25/20 07:26 Oxygen Flow Rate 0 03/25/20 07:26 Pain Level 4 03/25/20 08:44 Intake & Output 03/24/20 03/24/20 03/25/20 11:59 23:59 11:59 Intake Total 2407.5 / 3772.5 1365 / 3772.5 50 / 50 Output Total 45 / 45 Balance 2407.5 / 3742.5 1335 / 3742.5 5 Intake: IV 2077.5 / 2662.5 585 / 2662.5 50 / 50 Oral 330 / 1110 780 / 1110 Output: Drainage 45 / 45 Left Lower Abdomen 45 45 Other: Urine Appearance Clear Clear Clear Comment pt voiding independently. Data Completed and Pending Labs on day of discharge: Labs from last 24 hours 03/25/20 03/24/20 03/23/20 06:30 06:20 18:42 WBC 6.50 RBC 3.80 L Hgb 11.9 L D Hct 35.2 L MCV 92.6 MCH 31.3 MCHC 33.8 RDW 12.5 Plt Count 134 MPV 11.7 H Immature Gran % 0.0 Neutrophils % 46.5 Lymphocytes % 41.7 Monocytes % 8.6 Eosinophils % 2.9 Basophils % 0.3 Absolute Neutrophils 3.02 Absolute Lymphocytes 2.71 Absolute Monocytes 0.56 Absolute Eosinophils 0.19 Absolute Basophils 0.02 Conjugated Bilirubin 0.34 H COVID-19 PCR Negative Nasopharyn COVID-19 PCR Not Applicable Ref Test Perform Site [facility] [[email or web address] lab [facility] Medical History (Updated 03/24/20 @ 16:04 by Anat Walton DO) Acute appendicitis (Acute) Acute gangrenous appendicitis with localized peritonitis, without perforation (Acute) Elevated bilirubin (Acute) Tetrahydrocannabinol (THC) use disorder, moderate, dependence (Acute) Social History Smoking/Tobacco Use Status: Never Alcohol Intake: never Details: doesn't drink Drug use: Current Sobriety Substance use type: marijuana Details: attends [employer] Seatbelt use: always Do you feel safe at home: Yes Do you feel safe in your relationship?: Yes
--- NOTE | 2020-03-25 15:58 | PDOC.CMDIS ---
- If Service Date Differs Date of service: 03/25/20 Time of Service: 15:58 LACE Index Scoring Tool - Questions: Length of Stay (in days): 2 Acuity (Admit via E.D.?): Yes E.D. Visits: 1 - Answers: Total Score: 6 Risk of Readmission: Low Risk Care Management Discharge Reason for Hospitalization: Acute Appendicitis Discharge Plan: Dion will discharge home with no new services. He will resume substance abuse treatment at [facility] and will transport via private vehicle with family. Dion does not currently have a PCP. A referral will be sent by to Dr. Sofia's office since he was the physician showroom consultant when Dion was admitted. Dion will follow up with Dr. Walton as an outpatient. Patient/Family Education Needs: Discharge plan, limitations, follow up, Ask Me Three.
== END 2020-03-25 11:25 | disposition home or self-care (01) | DRG 342 ==
LOC: ER 16:01 → DSU 18:04 → MS 21:47
PROVIDERS: Physician Assistant; Admitting Provider Surgery; Emergency Provider Physician Assistant; Visit Provider Surgery
PROC: 0DTJ4ZZ Resection of Appendix, Percutaneous Endoscopic Approach (ICD-10-PCS; CPT 44970; principal; 2020-03-23 17:20)
DX: K35.891 Other acute appendicitis without perforation, with gangrene (principal); F11.20 Opioid dependence, uncomplicated; E80.7 Disorder of bilirubin metabolism, unspecified
CPT/HCPCS: 44970; 36415; 80053; 83690; 96361; 96365; 99222; 99238; 99285; NC; U0003; 74177; 81003; 82248; 85025; 88304; J0131; J1100; J1885; J2001; J2405; J2543; J2704; J3490